=== PATIENT | female | born 2000 | race African-American/Black ===

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

== ENCOUNTER 2022-03-10 04:45 | Emergency (ER) | payer OTHER ==
[~2022-03-10] VITALS: Ht 157.5 cm; Wt 72.7 kg
[2022-03-10 07:52] VITALS: BP 129/69
== END 2022-03-10 08:04 | disposition home or self-care (01) ==
LOC: M ED 04:45
DX: J09.X2 Influenza due to identified novel influenza A virus with other respiratory manifestations (principal); J45.909 Unspecified asthma, uncomplicated; Z88.0 Allergy status to penicillin

== ENCOUNTER 2022-04-27 18:39 | Emergency (ER) | payer OTHER ==
[~2022-04-27] VITALS: Ht 157.5 cm; Wt 76.9 kg
[2022-04-27] MEDS ORDERED: PREN1CHW6 PO (19:00)
[2022-04-27 19:47] LABS: BASO % 0.2 % (0.0-1.0); HEMATOCRIT 44.3 % (36.0-47.0); HEMOGLOBIN 14.7 g/dl (12.0-15.5); LYMPH % 5.8 % (24.0-44.0); MEAN CORPUSCULAR HEMOGLOBIN 27.4 pg (27.0-33.0); MEAN CORPUSCULAR HGB CONC 33.2 g/dl (32.0-36.5); MEAN CORPUSCULAR VOLUME 82.5 fl (80.0-96.0); MONO # 0.5 10^3/uL (0.0-0.8); MONO % 3.2 % (2.0-8.0); NEUTROPHILS # 14.9 10^3/uL (1.5-8.5); NEUTROPHILS % 90.4 % (36.0-66.0); PLATELET COUNT, AUTOMATED 385 10^3/uL (150-450); RED BLOOD COUNT 5.37 10^6/uL (4.00-5.40); WHITE BLOOD COUNT 16.4 10^3/uL (4.0-10.0)
[2022-04-27 20:00] LABS: BLOOD UREA NITROGEN 12 MG/DL (9-23); CALCIUM LEVEL 9.7 MG/DL (8.5-10.1); CARBON DIOXIDE LEVEL 21 MMOL/L (20-31); CHLORIDE LEVEL 103 MMOL/L (98-107); CREATININE FOR GFR 0.51 MG/DL (0.55-1.30); GLUCOSE, FASTING 100 MG/DL (60-100); POTASSIUM SERUM 4.2 MMOL/L (3.5-5.1); SODIUM LEVEL 136 MMOL/L (136-145)
[2022-04-27 20:40] LABS: HCG, SERUM QUANTITATIVE 145196.7 MIU/ML (<4.2)
[2022-04-27] MEDS ORDERED: METOCLOPRAMIDE INJ 10MG/2ML VIAL IV ONE (21:40)
[2022-04-27] MEDS ORDERED: NS 1,000 ML IV ONE (22:00)
[2022-04-28] MEDS ORDERED: REGL10TA6 PO (00:42)
[2022-04-28] MEDS ORDERED: METOCLOPRAMIDE 10MG TAB PO ONE (00:45)
[2022-04-28 00:53] LABS: APPEARANCE, URINE MANUAL HAZY (CLEAR); COLOR, URINE MANUAL YELLOW (YELLOW)
[2022-04-28 00:54] LABS: BILIRUBIN, URINE MANUAL NEGATIVE (NEGATIVE); BLOOD URINE MANUAL NEGATIVE (NEGATIVE); GLUCOSE, URINE (UA) MANUAL NEGATIVE (NEGATIVE); KETONE, URINE MANUAL 3+ mg/dL (NEGATIVE); LEUKOCYTE ESTERASE, URINE MAN NEGATIVE (NEGATIVE); NITRITE, URINE MANUAL NEGATIVE (NEGATIVE); PROTEIN, URINE MANUAL 1+ mg/dL (NEGATIVE); UROBILINOGEN, URINE MANUAL NORMAL (NORMAL)
[2022-04-28 00:59] VITALS: BP 131/69
[2022-04-28 01:07] LABS: SQUAMOUS EPITHELIAL CELL URINE LARGE AMOUNT /hpf (SMALL AMT)
[2022-04-28 01:08] LABS: AMORPHOUS SEDIMENT, URINE SMALL AMOUNT (NEGATIVE); BACTERIA, URINE NONE SEEN; HYALINE CAST, URINE NONE SEEN /lpf (0-1); MUCUS, URINE MOD AMOUNT (NEGATIVE)
== END 2022-04-28 01:12 | disposition home or self-care (01) ==
LOC: M ED 18:39
DX: O21.1 Hyperemesis gravidarum with metabolic disturbance (principal); F32.A Depression, unspecified; Z3A.01 Less than 8 weeks gestation of pregnancy; Z88.0 Allergy status to penicillin; Z79.810 Long term (current) use of selective estrogen receptor modulators (SERMs); Z79.899 Other long term (current) drug therapy

== ENCOUNTER → 2022-05-19 | Outpatient (CLI) | payer OTHER ==
[~2022-05-19] MED LIST changes: +PREN1CHW6 PO; +REGL10TA6 PO
[2022-05-19 15:39] LABS: HEMATOCRIT 40.7 % (36.0-47.0); HEMOGLOBIN 13.7 g/dl (12.0-15.5); MEAN CORPUSCULAR HEMOGLOBIN 28.2 pg (27.0-33.0); MEAN CORPUSCULAR HGB CONC 33.7 g/dl (32.0-36.5); MEAN CORPUSCULAR VOLUME 83.7 fl (80.0-96.0); PLATELET COUNT, AUTOMATED 329 10^3/uL (150-450); RED BLOOD COUNT 4.86 10^6/uL (4.00-5.40)
[2022-05-19 17:07] LABS: GC DNA AMPLIFICATION NEGATIVE (NEGATIVE)
[2022-05-19 21:16] LABS: HIV 1&2 SCREEN CENTAUR NEGATIVE (NEGATIVE)
[2022-05-19 21:22] LABS: HEPATITIS C VIRUS ABY INDEX < 0.0 INDEX (<0.8)
== END ==
LOC: M PLALAB 13:51
PROVIDERS: ATTEND Advanced Practice Midwife
DX: Z34.01 Encounter for supervision of normal first pregnancy, first trimester (principal)

== ENCOUNTER → 2022-08-02 | Outpatient (CLI) | payer OTHER | LOC: M WHC 09:13 | PROVIDERS: ATTEND Obstetrics & Gynecology | DX: O44.42 Low lying placenta NOS or without hemorrhage, second trimester (principal); Z3A.22 22 weeks gestation of pregnancy ==

== ENCOUNTER 2022-08-19 00:24 | Emergency (ER) | payer OTHER ==
[~2022-08-19] VITALS: Ht 154.9 cm; Wt 86.5 kg
[2022-08-19 00:26] VITALS: BP 139/83
== END 2022-08-19 02:05 | disposition left against medical advice (07) ==
LOC: M ED 00:24
DX: Z53.21 Procedure and treatment not carried out due to patient leaving prior to being seen by health care provider (principal)

== ENCOUNTER → 2022-10-02 | Outpatient (CLI) | payer OTHER ==
[2022-10-02 14:05] LABS: HEMATOCRIT 32.6 % (36.0-47.0); HEMOGLOBIN 10.5 g/dl (12.0-15.5); MEAN CORPUSCULAR HEMOGLOBIN 25.9 pg (27.0-33.0); MEAN CORPUSCULAR HGB CONC 32.2 g/dl (32.0-36.5); MEAN CORPUSCULAR VOLUME 80.3 fl (80.0-96.0); PLATELET COUNT, AUTOMATED 347 10^3/uL (150-450); RED BLOOD COUNT 4.06 10^6/uL (4.00-5.40); WHITE BLOOD COUNT 10.1 10^3/uL (4.0-10.0)
[2022-10-02 15:33] LABS: GC DNA AMPLIFICATION NEGATIVE (NEGATIVE)
== END ==
LOC: M PLALAB 08:45
PROVIDERS: ATTEND Obstetrics & Gynecology
DX: O44.42 Low lying placenta NOS or without hemorrhage, second trimester (principal); Z3A.00 Weeks of gestation of pregnancy not specified
CPT/HCPCS: 36415; 82950; 85027; 86850; 86900; 86901; 87810; 87850; J2790

== ENCOUNTER → 2022-10-02 | Outpatient (CLI) | payer OTHER | LOC: M WHC 08:05 | PROVIDERS: ATTEND Obstetrics & Gynecology | DX: O44.42 Low lying placenta NOS or without hemorrhage, second trimester (principal) ==

== ENCOUNTER → 2022-10-03 | Outpatient (REF) | payer OTHER ==
[2022-10-03 17:58] LABS: BASO % 0.4 % (0.0-1.0); EOS % 0.3 % (0.0-3.0); HEMATOCRIT 33.5 % (36.0-47.0); HEMOGLOBIN 10.7 g/dl (12.0-15.5); LYMPH # 2.8 10^3/uL (1.5-5.0); MEAN CORPUSCULAR HEMOGLOBIN 25.5 pg (27.0-33.0); MEAN CORPUSCULAR HGB CONC 31.9 g/dl (32.0-36.5); MEAN CORPUSCULAR VOLUME 79.8 fl (80.0-96.0); MONO # 0.7 10^3/uL (0.0-0.8); NEUTROPHILS # 6.1 10^3/uL (1.5-8.5); NEUTROPHILS % 62.8 % (36.0-66.0); PLATELET COUNT, AUTOMATED 340 10^3/uL (150-450); WHITE BLOOD COUNT 9.7 10^3/uL (4.0-10.0)
[2022-10-03 18:05] LABS: HEMOGLOBIN A1c 5.4 % (4.0-6.0)
[2022-10-03 18:31] LABS: ALKALINE PHOSPHATASE 108 U/L (46-116); ALT/SGPT < 9 U/L (7.0-40); AST/SGOT < 8 U/L (<34); BILIRUBIN,TOTAL 0.7 MG/DL (0.3-1.2); BLOOD UREA NITROGEN 5 MG/DL (9-23); CALCIUM LEVEL 8.9 MG/DL (8.5-10.1); CARBON DIOXIDE LEVEL 21 MMOL/L (20-31); CHLORIDE LEVEL 106 MMOL/L (98-107); CHOLESTEROL LEVEL 204 MG/DL (<200); CHOLESTEROL RISK RATIO 3.07 (<5); CREATININE FOR GFR 0.44 MG/DL (0.55-1.30); GLUCOSE, FASTING 92 MG/DL (60-100); HDL CHOLESTEROL 66.4 MG/DL (>40); NON-HDL-C 137.6 MG/DL; POTASSIUM SERUM 4.1 MMOL/L (3.5-5.1); SODIUM LEVEL 136 MMOL/L (136-145); THYROID STIMULATING HORMONE 0.578 uIU/ML (0.48-4.17); TOTAL 25(OH) VITAMIN D 23.6 NG/ML (20.0-100.0); TOTAL PROTEIN 6.2 G/DL (5.7-8.2); TRIGLYCERIDES LEVEL 143 MG/DL (<150)
== END ==
LOC: M LAB REF 17:17
PROVIDERS: ATTEND Nurse Practitioner Family
DX: Z13.228 Encounter for screening for other metabolic disorders (principal)

== ENCOUNTER → 2022-10-18 | Outpatient (CLI) | payer OTHER | LOC: M LAB 07:05 | PROVIDERS: ATTEND Advanced Practice Midwife | DX: O99.810 Abnormal glucose complicating pregnancy (principal) ==

== ENCOUNTER 2022-11-04 06:33 | Inpatient (IN) | payer OTHER ==
[~2022-11-04] VITALS: Ht 160 cm; Wt 89.7 kg
[2022-11-04 06:50] VITALS: BP 130/79
[2022-11-04] MEDS ORDERED: HOME MED LIST COMPLETE! XX SCH (07:00)
[2022-11-04 07:01] VITALS: BP 136/83
[2022-11-04] MEDS ORDERED: LR 500 ML IV ONE (07:30)
[2022-11-04] MEDS: LR 1,000 ML IV SCH ×4 (08:19→21:35)
[2022-11-04 08:57] VITALS: BP 125/77
[2022-11-04 09:20] LABS: HEMATOCRIT 34.1 % (36.0-47.0); HEMOGLOBIN 10.5 g/dl (12.0-15.5); MEAN CORPUSCULAR HEMOGLOBIN 23.7 pg (27.0-33.0); MEAN CORPUSCULAR HGB CONC 30.8 g/dl (32.0-36.5); PLATELET COUNT, AUTOMATED 307 10^3/uL (150-450); RED BLOOD COUNT 4.43 10^6/uL (4.00-5.40)
[2022-11-04] MEDS: BETAMETHASONE SOLUSPAN 6MG/ML 5ML VIAL IM SCH ×2 (10:32→22:37)
[2022-11-04 14:46] VITALS: BP 139/91
[2022-11-04 18:06] VITALS: BP 133/89
[2022-11-04 21:36] VITALS: BP 130/96
[2022-11-05] VITALS (42 sets, daily range): BP systolic 116–199; BP diastolic 55–90
[2022-11-05] MEDS: LR 1,000 ML IV SCH ×2 (06:35→14:42)
[2022-11-05] MEDS ORDERED: OXYTOCIN DRIP 30 UNITS in IV 1 EA IV SCH ×2 (08:40→22:05)
[2022-11-05] MEDS ORDERED: LR 1,000 ML IV SCH (08:40)
[2022-11-05] MEDS ORDERED: LR 500 ML IV PRN (16:10)
[2022-11-05] MEDS ORDERED: ONDANSETRON 4MG 2ML VIAL IV PRN (16:10)
[2022-11-05] MEDS ORDERED: FENTANYL/ROPIVACAINE/NACL BAG 100 ML EPIDURAL SCH (16:10)
[2022-11-05] MEDS ORDERED: EPIDURAL/PCA KEYS XX PRN (16:10)
[2022-11-05] MEDS ORDERED: ePHEDrine SULFATE 25 MG/5 ML(5MG/ML) SYRINGE IVP PRN (16:10)
[2022-11-05] MEDS ORDERED: NALOXONE INJ 0.4MG/1ML VIAL IV PRN (16:10)
[2022-11-05] MEDS ORDERED: diphenhydrAMINE 50MG/ML VIAL IV PRN (16:10)
[2022-11-05] MEDS ORDERED: CLINDAMYCIN 900 MG in IV 1 EA IV SCH (20:30)
[2022-11-05] MEDS ORDERED: DIBUCAINE 1% OINTMENT 30GM TOP PRN (22:05)
[2022-11-05] MEDS ORDERED: DOCUSATE SODIUM 100MG CAPSULE PO PRN (22:05)
[2022-11-05] MEDS ORDERED: RHOGAM 300MCG (1500IU) INJ IM SCH (22:05)
[2022-11-05] MEDS ORDERED: ANUSOL HC CREAM 30GM TOP PRN (22:05)
[2022-11-05] MEDS ORDERED: METHYLERGONOVINE MALEATE 0.2 MG TAB PO PRN (22:05)
[2022-11-05] MEDS ORDERED: IBUPROFEN 600MG TAB PO PRN (22:05)
[2022-11-05] MEDS ORDERED: ACETAMINOPHEN TAB 650MG DOSE (2X325MG) PO PRN (22:05)
[2022-11-05] MEDS ORDERED: ACETAMINOPHEN 500 MG TAB PO PRN (22:05)
[2022-11-05] MEDS ORDERED: IBUPROFEN 800 MG TAB PO PRN (22:05)
[2022-11-05 22:20] LABS: CORD GAS ABE A -4.8; CORD GAS ABE V -4.4; CORD GAS HCO3 A 20.5 MMOL/L; CORD GAS HCO3 V 20.4 MMOL/L; CORD GAS O2 SAT A 80.6 %; CORD GAS O2 SAT V 87.5 %; CORD GAS PCO2 A 39.1 mmHg; CORD GAS PCO2 V 37.4 mmHg; CORD GAS PH A 7.337 UNITS; CORD GAS PH V 7.355 UNITS; CORD GAS PO2 A 35.9 mmHg; CORD GAS PO2 V 41.8 mmHg; CORD GAS SBC A 20.1 MMOL/L; CORD GAS SBC V 20.6 MMOL/L; CORD GAS TCO2 A 21.7 MMOL/L; CORD GAS TCO2 V 21.6 MMOL/L
[2022-11-06 00:05] VITALS: BP 126/69; O2SAT 97
[2022-11-06 06:00] VITALS: BP 135/71; O2SAT 99
[2022-11-06] MEDS: PRENATAL VITAMINS CHEWABLE TABLET PO SCH (08:23)
[2022-11-06 18:00] VITALS: BP 129/63; O2SAT 97
[2022-11-07 06:00] VITALS: BP 133/69; O2SAT 99
[2022-11-07] MEDS: PRENATAL VITAMINS CHEWABLE TABLET PO SCH (08:10)
[2022-11-07] MEDS ORDERED: MEASLES,MUMPS,RUBELLA VACCINE INJ (MMR-II) SC.IMMUN ONE (09:00)
== END 2022-11-07 13:00 | disposition home or self-care (01) | DRG 560 ==
LOC: M LDO 06:33 → M LDI 09:42 → OBSVTOIN 09:42 → INTOOBSV 09:42 → M OBS 11-06
PROVIDERS: ADMIT Obstetrics & Gynecology; ATTEND Obstetrics & Gynecology
PROC: 3E033VJ Introduction of Other Hormone into Peripheral Vein, Percutaneous Approach (ICD-10-PCS; 2022-11-04)
PROC: 10E0XZZ Delivery of Products of Conception, External Approach (ICD-10-PCS; principal; 2022-11-05)
DX: O36.8130 Decreased fetal movements, third trimester, not applicable or unspecified (principal); O41.03X0 Oligohydramnios, third trimester, not applicable or unspecified; Z37.0 Single live birth; Z3A.35 35 weeks gestation of pregnancy; O69.1XX0 Labor and delivery complicated by cord around neck, with compression, not applicable or unspecified; O64.8XX0 Obstructed labor due to other malposition and malpresentation, not applicable or unspecified

== ENCOUNTER 2023-02-14 10:43 | Emergency (ER) | payer OTHER, MEDICAID ==
[~2023-02-14] VITALS: Ht 160 cm; Wt 81.8 kg
[2023-02-14 12:32] LABS: BASO # 0.1 10^3/uL (0.0-0.2); BASO % 0.6 % (0.0-1.0); EOS % 0.2 % (0.0-3.0); HEMATOCRIT 40.1 % (36.0-47.0); HEMOGLOBIN 13.2 g/dl (12.0-15.5); LYMPH # 2.2 10^3/uL (1.5-5.0); MEAN CORPUSCULAR HEMOGLOBIN 26.3 pg (27.0-33.0); MEAN CORPUSCULAR HGB CONC 32.9 g/dl (32.0-36.5); MONO # 0.4 10^3/uL (0.0-0.8); MONO % 4.6 % (2.0-8.0); NEUTROPHILS # 5.6 10^3/uL (1.5-8.5); NEUTROPHILS % 67.5 % (36.0-66.0); PLATELET COUNT, AUTOMATED 399 10^3/uL (150-450); RED BLOOD COUNT 5.01 10^6/uL (4.00-5.40); WHITE BLOOD COUNT 8.3 10^3/uL (4.0-10.0)
[2023-02-14 12:53] LABS: ALBUMIN 4.3 G/DL (3.2-5.2); BILIRUBIN,DIRECT 0.1 MG/DL (<0.4); BILIRUBIN,TOTAL 0.5 MG/DL (0.3-1.2); TOTAL PROTEIN 7.3 G/DL (5.7-8.2)
[2023-02-14 13:52] VITALS: BP 120/67; TEMP 97.2; O2SAT 97
[2023-02-14 15:51] LABS: GC DNA AMPLIFICATION NEGATIVE (NEGATIVE)
== END 2023-02-14 14:19 | disposition home or self-care (01) ==
LOC: M ED 12:31
DX: R10.31 Right lower quadrant pain (principal); Z88.0 Allergy status to penicillin; Z79.810 Long term (current) use of selective estrogen receptor modulators (SERMs)

== ENCOUNTER 2023-03-03 15:49 | Emergency (ER) | payer MEDICAID, OTHER ==
[~2023-03-03] VITALS: Ht 160 cm; Wt 80.5 kg
[2023-03-03 15:50] VITALS: BP 127/66; TEMP 97.7; O2SAT 98
[2023-03-03] MEDS ORDERED: KETOROLAC 30 MG/ML 1ML VIAL IV ONE (16:55)
[2023-03-03] MEDS ORDERED: ONDANSETRON 4MG 2ML VIAL IV ONE (16:55)
[2023-03-03] MEDS ORDERED: NS 1,000 ML IV ONE (16:55)
[2023-03-03 17:28] LABS: BASO % 0.3 % (0.0-1.0); EOS % 0.1 % (0.0-3.0); HEMATOCRIT 37.9 % (36.0-47.0); HEMOGLOBIN 12.7 g/dl (12.0-15.5); LYMPH # 1.6 10^3/uL (1.5-5.0); LYMPH % 21.9 % (24.0-44.0); MEAN CORPUSCULAR HEMOGLOBIN 26.8 pg (27.0-33.0); MEAN CORPUSCULAR HGB CONC 33.5 g/dl (32.0-36.5); MONO # 0.3 10^3/uL (0.0-0.8); MONO % 3.9 % (2.0-8.0); NEUTROPHILS # 5.5 10^3/uL (1.5-8.5); NEUTROPHILS % 73.5 % (36.0-66.0); PLATELET COUNT, AUTOMATED 356 10^3/uL (150-450); RED BLOOD COUNT 4.74 10^6/uL (4.00-5.40); WHITE BLOOD COUNT 7.5 10^3/uL (4.0-10.0)
[2023-03-03 17:42] LABS: ALBUMIN 4.3 G/DL (3.2-5.2); BILIRUBIN,DIRECT 0.2 MG/DL (<0.4); BILIRUBIN,TOTAL 0.7 MG/DL (0.3-1.2); TOTAL PROTEIN 7.5 G/DL (5.7-8.2)
[2023-03-03] MEDS ORDERED: CIPR-249 PO (18:20)
[2023-03-03] MEDS ORDERED: IBUP-1022 PO (18:20)
[2023-03-03] MEDS ORDERED: FLAG375C PO (18:20)
[2023-03-03] MEDS ORDERED: ONDA4TAB6 PO (18:20)
== END 2023-03-03 18:30 | disposition home or self-care (01) ==
LOC: M ED 15:49
DX: K80.20 Calculus of gallbladder without cholecystitis without obstruction (principal); J45.909 Unspecified asthma, uncomplicated; Z87.891 Personal history of nicotine dependence; Z88.0 Allergy status to penicillin
CPT/HCPCS: 76705; 80047; 80076; 83690; 84702; 85025; 96361; 96374; 99283; J1885; J2405

== ENCOUNTER 2023-04-19 07:39 | Day surgery (SDC) | payer OTHER ==
[~2023-04-19] VITALS: Ht 157.5 cm; Wt 75.7 kg
[~2023-04-19 07:39] MED LIST changes: +CIPR-249 PO; +FLAG375C PO; +HEPARIN SOD (PORCINE) 5000UNITS/ML 1ML VIAL/SYRINGE SQ ONE; +IBUP-1022 PO; +INDOCYANINE GREEN 25MG VIAL (IC-GREEN) IV ONE; +LR 1,000 ML IV SCH; +UNRESOLVED CLARIFICATION ENTRY XX SCH; +VITA200032
[2023-04-19] MEDS ORDERED: CLINDAMYCIN 900 MG in IV 1 EA IV ONE (07:45)
[2023-04-19] MEDS ORDERED: LIDOCAINE 2% 100MG/5ML SDV (FOR ANES.) As Ordered ONE (08:16)
[2023-04-19] MEDS ORDERED: propofoL 200 MG/20 ML VIAL As Ordered ONE (08:16)
[2023-04-19] MEDS ORDERED: ACETAMINOPHEN 1000MG 100ML IV BAG As Ordered ONE (08:16)
[2023-04-19] MEDS ORDERED: SUGAMMADEX SODIUM 500 MG/5 ML VIAL (BRIDION) As Ordered ONE (08:16)
[2023-04-19] MEDS ORDERED: ROCURONIUM BROMIDE 50MG/5ML VIAL As Ordered ONE (08:16)
[2023-04-19] MEDS ORDERED: KETOROLAC 60MG 2ML VIAL As Ordered ONE (08:16)
[2023-04-19] MEDS ORDERED: ONDANSETRON 4MG 2ML VIAL As Ordered ONE (08:16)
[2023-04-19] MEDS ORDERED: MIDAZOLAM INJ 2MG/2ML VIAL As Ordered ONE (08:18)
[2023-04-19] MEDS ORDERED: fentaNYL 100 MCG/2 ML INJECTION As Ordered ONE ×2 (08:18→09:31)
[2023-04-19] MEDS ORDERED: LR 1,000 ML IV SCH (10:05)
[2023-04-19] MEDS ORDERED: oxyCODONE 5MG TAB PO PRN (10:05)
[2023-04-19] MEDS ORDERED: ONDANSETRON 4MG 2ML VIAL IV PRN (10:05)
[2023-04-19] MEDS ORDERED: HYDROMORPHONE HCL 0.5 MG/ 0.5 ML SYRINGE IV PRN (10:05)
[2023-04-19] MEDS: fentaNYL 100 MCG/2 ML INJECTION IV PRN ×2 (10:27→10:33)
[2023-04-19 11:53] VITALS: BP 129/74; TEMP 97.1; O2SAT 100
== END 2023-04-19 12:57 | disposition home or self-care (01) ==
LOC: M SDC 07:39
PROVIDERS: ATTEND Surgery
DX: K80.20 Calculus of gallbladder without cholecystitis without obstruction (principal); F41.9 Anxiety disorder, unspecified; F32.A Depression, unspecified; J45.909 Unspecified asthma, uncomplicated; Z79.899 Other long term (current) drug therapy; Z88.0 Allergy status to penicillin
CPT/HCPCS: 47562; 81025; 88304; J0131; J0665; J0737; J1100; J1885; J2250; J2405; J3010; Q9968; S2900

== ENCOUNTER → 2023-06-04 | Outpatient (REF) | payer OTHER ==
[~2023-06-04] MED LIST changes: -HEPARIN SOD (PORCINE) 5000UNITS/ML 1ML VIAL/SYRINGE SQ ONE; -INDOCYANINE GREEN 25MG VIAL (IC-GREEN) IV ONE; -LR 1,000 ML IV SCH; -UNRESOLVED CLARIFICATION ENTRY XX SCH
[2023-06-04 17:35] LABS: BASO % 0.7 % (0.0-1.0); EOS # 0.1 10^3/uL (0.0-0.5); EOS % 1.6 % (0.0-3.0); HEMATOCRIT 39.7 % (36.0-47.0); LYMPH # 2.8 10^3/uL (1.5-5.0); LYMPH % 48.1 % (24.0-44.0); MEAN CORPUSCULAR HEMOGLOBIN 27.6 pg (27.0-33.0); MEAN CORPUSCULAR HGB CONC 32.7 g/dl (32.0-36.5); MEAN CORPUSCULAR VOLUME 84.3 fl (80.0-96.0); MONO # 0.4 10^3/uL (0.0-0.8); MONO % 7.1 % (2.0-8.0); NEUTROPHILS # 2.4 10^3/uL (1.5-8.5); NEUTROPHILS % 42.3 % (36.0-66.0); PLATELET COUNT, AUTOMATED 376 10^3/uL (150-450); RED BLOOD COUNT 4.71 10^6/uL (4.00-5.40); WHITE BLOOD COUNT 5.7 10^3/uL (4.0-10.0)
[2023-06-04 18:01] LABS: HEMOGLOBIN A1c 5.3 % (4.0-6.0)
[2023-06-04 18:09] LABS: ALBUMIN 3.9 G/DL (3.2-5.2); ALKALINE PHOSPHATASE 86 U/L (46-116); ALT/SGPT 11 U/L (7.0-40); AST/SGOT 9 U/L (<34); BILIRUBIN,TOTAL 1.1 MG/DL (0.3-1.2); BLOOD UREA NITROGEN 14 MG/DL (9-23); CALCIUM LEVEL 9.8 MG/DL (8.5-10.1); CARBON DIOXIDE LEVEL 29 MMOL/L (20-31); CHLORIDE LEVEL 106 MMOL/L (98-107); CHOLESTEROL LEVEL 213 MG/DL (<200); CHOLESTEROL RISK RATIO 4.11 (<5); CREATININE FOR GFR 0.59 MG/DL (0.55-1.30); GLUCOSE, FASTING 80 MG/DL (60-100); HDL CHOLESTEROL 51.7 MG/DL (>40); LDL CHOLESTEROL 144.3 MG/DL (<100); NON-HDL-C 161.3 MG/DL; POTASSIUM SERUM 4.5 MMOL/L (3.5-5.1); SODIUM LEVEL 140 MMOL/L (136-145); TOTAL PROTEIN 7.1 G/DL (5.7-8.2); TRIGLYCERIDES LEVEL 85 MG/DL (<150)
[2023-06-04 18:10] LABS: THYROID STIMULATING HORMONE 1.944 uIU/ML (0.48-4.17)
== END ==
LOC: M LAB REF 16:29
PROVIDERS: ATTEND Nurse Practitioner Family
DX: E66.9 Obesity, unspecified (principal)

== ENCOUNTER → 2023-09-24 | Outpatient (CLI) | payer OTHER ==
[~2023-09-24] MED LIST changes: +ONDA-282 PO; -ONDA4TAB6 PO
[2023-09-24 14:05] LABS: HEMATOCRIT 39.9 % (36.0-47.0); HEMOGLOBIN 13.5 g/dl (12.0-15.5); MEAN CORPUSCULAR HGB CONC 33.8 g/dl (32.0-36.5); MEAN CORPUSCULAR VOLUME 82.6 fl (80.0-96.0); PLATELET COUNT, AUTOMATED 349 10^3/uL (150-450); RED BLOOD COUNT 4.83 10^6/uL (4.00-5.40); WHITE BLOOD COUNT 11.1 10^3/uL (4.0-10.0)
[2023-09-24 14:41] LABS: HIV 1&2 SCREEN NEGATIVE (NEGATIVE)
[2023-09-24 14:47] LABS: HEPATITIS C VIRUS ABY INDEX < 0.02 INDEX (<0.8)
[2023-09-24 15:36] LABS: GC DNA AMPLIFICATION NEGATIVE (NEGATIVE)
== END ==
LOC: M PLALAB 10:16
PROVIDERS: ATTEND Advanced Practice Midwife
DX: Z34.92 Encounter for supervision of normal pregnancy, unspecified, second trimester (principal); Z3A.00 Weeks of gestation of pregnancy not specified

== ENCOUNTER → 2023-11-13 | Outpatient (CLI) | payer OTHER | LOC: M RAD 14:10 | PROVIDERS: ATTEND Obstetrics & Gynecology | DX: Z34.82 Encounter for supervision of other normal pregnancy, second trimester (principal) ==

== ENCOUNTER → 2024-01-22 | Outpatient (CLI) | payer OTHER ==
[2024-01-22 15:07] LABS: HEMATOCRIT 32.7 % (36.0-47.0); HEMOGLOBIN 10.2 g/dl (12.0-15.5); MEAN CORPUSCULAR HEMOGLOBIN 24.2 pg (27.0-33.0); MEAN CORPUSCULAR HGB CONC 31.2 g/dl (32.0-36.5); MEAN CORPUSCULAR VOLUME 77.7 fl (80.0-96.0); PLATELET COUNT, AUTOMATED 318 10^3/uL (150-450); RED BLOOD COUNT 4.21 10^6/uL (4.00-5.40); WHITE BLOOD COUNT 11.7 10^3/uL (4.0-10.0)
[2024-01-22 16:40] LABS: GC DNA AMPLIFICATION NEGATIVE (NEGATIVE)
== END ==
LOC: M PLALAB 11:47
PROVIDERS: ATTEND Obstetrics & Gynecology
DX: Z34.82 Encounter for supervision of other normal pregnancy, second trimester (principal); Z3A.00 Weeks of gestation of pregnancy not specified

== ENCOUNTER → 2024-01-23 | Outpatient (REF) | payer OTHER | LOC: M PLALAB 12:38 | PROVIDERS: ATTEND Obstetrics & Gynecology | DX: Z53.9 Procedure and treatment not carried out, unspecified reason (principal) ==

== ENCOUNTER → 2024-02-01 | Outpatient (CLI) | payer OTHER | LOC: M LAB 08:54 | PROVIDERS: ATTEND Obstetrics & Gynecology | DX: O99.810 Abnormal glucose complicating pregnancy (principal); Z3A.00 Weeks of gestation of pregnancy not specified ==

== ENCOUNTER → 2024-02-05 | Outpatient (CLI) | payer OTHER | LOC: M RAD 11:11 | PROVIDERS: ATTEND Obstetrics & Gynecology | DX: Z36.2 Encounter for other antenatal screening follow-up (principal) ==

== ENCOUNTER → 2024-03-11 | Outpatient (REF) | payer OTHER ==
[~2024-03-11] MED LIST changes: +FERR325T3 PO; +PRENTAB9 PO
== END ==
LOC: M PLALAB 09:45
PROVIDERS: ATTEND Nurse Practitioner Family
DX: Z53.9 Procedure and treatment not carried out, unspecified reason (principal)

== ENCOUNTER → 2024-12-08 | Outpatient (CLI) | payer OTHER ==
[~2024-12-08] MED LIST changes: -IBUP-1022 PO; +IBUP600T42 PO
[2024-12-08 18:43] LABS: HIV 1&2 SCREEN NEGATIVE (NEGATIVE)
[2024-12-08 18:54] LABS: Trichomonas vaginalis (AMP) NOT DETECTED (NEGATIVE)
[2024-12-08 19:19] LABS: GC DNA AMPLIFICATION NEGATIVE (NEGATIVE)
== END ==
LOC: M PLALAB 15:18
PROVIDERS: ATTEND Obstetrics & Gynecology
DX: Z34.80 Encounter for supervision of other normal pregnancy, unspecified trimester (principal)

== ENCOUNTER → 2024-12-08 | Outpatient (CLI) | payer OTHER | LOC: M PLALAB 15:22 | PROVIDERS: ATTEND Nurse Practitioner Family | DX: Z34.80 Encounter for supervision of other normal pregnancy, unspecified trimester (principal) ==

== ENCOUNTER → 2025-02-04 | Outpatient (CLI) | payer OTHER | LOC: M WHC 14:20 | PROVIDERS: ATTEND Nurse Practitioner Family | DX: Z34.80 Encounter for supervision of other normal pregnancy, unspecified trimester (principal); Z3A.21 21 weeks gestation of pregnancy ==